=== PATIENT | female | born 1990 | race Caucasian/White ===

== ENCOUNTER 2016-05-01 19:26 | Emergency (ER) | payer MEDICAID | END 2016-05-01 21:35 | disposition home or self-care (01) | LOC: ER 19:26 | CPT/HCPCS: 36415; 80048; 84702; 85025; 86901 ==

== ENCOUNTER 2016-05-12 19:19 | Emergency (ER) | payer MEDICAID ==
[2016-05-12] MEDS ORDERED: ONDANSETRON 4 MG VIAL ONE (21:17)
[2016-05-12] MEDS ORDERED: MORPHINE 4 MG/ML SYR ONE (21:18)
== END 2016-05-12 23:01 | disposition home or self-care (01) ==
LOC: ER 19:19
DX: R10.9 Unspecified abdominal pain (principal); O34.80 Maternal care for other abnormalities of pelvic organs, unspecified trimester; N83.02 Follicular cyst of left ovary; Z3A.00 Weeks of gestation of pregnancy not specified
CPT/HCPCS: 36415; 76856; 80053; 81001; 83690; 84703; 85025; 87088; 96374; 96375

== ENCOUNTER 2016-05-17 16:40 | Emergency (ER) | payer MEDICAID ==
[2016-05-17] MEDS ORDERED: MORPHINE 4 MG/ML SYR ONE (18:27)
== END 2016-05-17 19:48 | disposition home or self-care (01) ==
LOC: ER 16:40
DX: S30.1XXA Contusion of abdominal wall, initial encounter (principal); W50.0XXA Accidental hit or strike by another person, initial encounter; Z33.1 Pregnant state, incidental
CPT/HCPCS: 36415; 81001; 85460; 86901; 87088; 96372

== ENCOUNTER 2016-05-28 17:25 | Emergency (ER) | payer MEDICAID ==
[2016-05-28] MEDS ORDERED: Meclizine HCl 25 MG TAB ONE (22:52)
== END 2016-05-28 22:58 | disposition home or self-care (01) ==
LOC: ER 17:25
DX: O26.893 Other specified pregnancy related conditions, third trimester (principal); H83.03 Labyrinthitis, bilateral; Z3A.00 Weeks of gestation of pregnancy not specified
CPT/HCPCS: 36415; 80053; 81003; 84702; 85025